=== PATIENT | female | born 1995 | race Caucasian/White ===

== ENCOUNTER 2016-12-09 19:55 | Inpatient (IN) | payer BC ==
[~2016-12-09] VITALS: Ht 170.2 cm; Wt 104.0 kg
[~2016-12-09 19:55] MED LIST: NONE PER PT
[2016-12-09] MEDS ORDERED: D5%-LACTATED RINGERS 1,000 ML IV SCH (20:49)
[2016-12-09] MEDS ORDERED: OXYTOCIN 30U/ 0.9% NaCL 500ML 500 ML IV ONE (20:49)
[2016-12-09] MEDS ORDERED: ONDANSETRON 2MG/ML, 2ML IVPush PRN (21:00)
[2016-12-09] MEDS ORDERED: CALCIUM CARBONATE 500 MG TAB.CHEW PO PRN (21:00)
[2016-12-09] MEDS: LACTATED RINGERS 1,000 ML IV SCH (21:00)
[2016-12-09] MEDS ORDERED: FENTANYL PF 100 MCG/2ML IV PRN (21:00)
[2016-12-09] MEDS ORDERED: CLINDAMYCIN PMX 900MG/50ML 50 ML IVPB SCH (21:00)
[2016-12-09] MEDS ORDERED: FENTANYL PF 100 MCG/2ML IVPush PRN (21:00)
[2016-12-09 21:19] VITALS: BP 164/103
[2016-12-09] MEDS ORDERED: PLEASE ENTER HEIGHT AND WEIGHT MC SCH (21:30)
[2016-12-09] MEDS ORDERED: CLINDAMYCIN PMX 900MG/50ML 50 ML ONE (21:34)
[2016-12-09] MEDS ORDERED: NEWBORN KIT ONE (21:34)
[2016-12-09] MEDS ORDERED: OXYTOCIN 30U/ 0.9% NaCL 500ML 500 ML ONE (21:34)
[2016-12-09 22:04] LABS: BLOOD UREA NITROGEN 6 mg/dL (7-18)
[2016-12-09 22:10] LABS: ASPARTATE AMINO TRANSFERASE 16 U/L (15-37)
[2016-12-10] MEDS ORDERED: FENTANYL PF 100 MCG/2ML ONE ×2 (02:15→03:13)
[2016-12-10] MEDS ORDERED: ONDANSETRON 2MG/ML, 2ML ONE (02:20)
[2016-12-10] MEDS ORDERED: FENTANYL/BUPIV./NS/PF 250 ML EPIDCONT ONE ×2 (03:13→03:16)
[2016-12-10] MEDS ORDERED: BUPIVACAINE 0.25% ONE ×2 (03:14→03:16)
[2016-12-10] MEDS ORDERED: LIDOCAINE/PF 1.5%-EPI 1:200K, 30ML ONE (03:16)
[2016-12-10] MEDS: LACTATED RINGERS 1,000 ML IV SCH (04:00)
[2016-12-10] MEDS: OXYTOCIN 30U/ 0.9% NaCL 500ML 500 ML IV SCH ×2 (05:34→15:34)
[2016-12-10] MEDS ORDERED: ONDANSETRON 2MG/ML, 2ML IV PRN (06:00)
[2016-12-10] MEDS ORDERED: MISOPROSTOL 200 MCG TABLET PR PRN (06:00)
[2016-12-10 08:30] VITALS: BP 123/75
[2016-12-10 12:30] VITALS: BP 125/80
[2016-12-10] MEDS: IBUPROFEN 600 MG TABLET PO PRN ×2 (16:44→22:48)
[2016-12-10] MEDS: PRENATAL VIT/IRON/FA 1 EACH TABLET PO SCH (16:44)
[2016-12-10] MEDS: HYDROcodone/APAP 5/325 TABLET PO PRN (21:28)
[2016-12-10 22:15] VITALS: BP 140/84
[2016-12-10] MEDS ORDERED: MEASLES,MUMPS&RUBELLA VACC/PF 0.5 ML SQ-VACC ONE (22:30)
[2016-12-11] MEDS ORDERED: DIPH,PERTUSS(ACELL),TET VAC/PF NC IM-VACC ONE ×2 (00:48→01:30)
[2016-12-11] MEDS: HYDROcodone/APAP 5/325 TABLET PO PRN ×5 (01:57→21:56)
[2016-12-11 02:00] VITALS: BP 133/69
[2016-12-11] MEDS: IBUPROFEN 600 MG TABLET PO PRN ×3 (05:30→21:56)
[2016-12-11 08:00] VITALS: BP 121/74
[2016-12-11] MEDS: DOCUSATE 100 MG CAPSULE PO PRN ×2 (09:36→21:56)
[2016-12-11] MEDS: PRENATAL VIT/IRON/FA 1 EACH TABLET PO SCH (09:36)
[2016-12-11 12:20] VITALS: BP 137/88
[2016-12-11 19:25] VITALS: BP 141/88
[2016-12-12] MEDS: HYDROcodone/APAP 5/325 TABLET PO PRN ×2 (03:12→14:04)
[2016-12-12] MEDS: IBUPROFEN 600 MG TABLET PO PRN (03:12)
[2016-12-12 06:59] VITALS: BP 138/81
[2016-12-12] MEDS ORDERED: HYDR-3240 PO (13:01)
[2016-12-12] MEDS ORDERED: DOCU-30 PO (13:01)
[2016-12-12] MEDS: PRENATAL VIT/IRON/FA 1 EACH TABLET PO SCH (14:04)
[2016-12-12] MEDS: DOCUSATE 100 MG CAPSULE PO PRN (14:04)
== END 2016-12-12 15:57 | disposition home or self-care (01) | DRG 775 ==
LOC: LDOP 19:55 → LDIP 20:26 → 2NW 12-10 08:11
PROVIDERS: ADMIT Student in an Organized Health Care Education/Training Program; ATTEND Student in an Organized Health Care Education/Training Program
PROC: 10E0XZZ Delivery of Products of Conception, External Approach (ICD-10-PCS; principal; 2016-12-10)
PROC: 10907ZC Drainage of Amniotic Fluid, Therapeutic from Products of Conception, Via Natural or Artificial Opening (ICD-10-PCS; 2016-12-10)
PROC: 00HU33Z Insertion of Infusion Device into Spinal Canal, Percutaneous Approach (ICD-10-PCS; 2016-12-10)
PROC: 3E0R3CZ (ICD-10-PCS; 2016-12-10)
DX: O14.04 Mild to moderate pre-eclampsia, complicating childbirth (principal); O99.824 Streptococcus B carrier state complicating childbirth; O99.52 Diseases of the respiratory system complicating childbirth; O32.6XX0 Maternal care for compound presentation, not applicable or unspecified; J31.0 Chronic rhinitis; O71.82 Other specified trauma to perineum and vulva; Z3A.39 39 weeks gestation of pregnancy; Z37.0 Single live birth; Z88.0 Allergy status to penicillin; Z87.59 Personal history of other complications of pregnancy, childbirth and the puerperium; Z23 Encounter for immunization
CPT/HCPCS: 36415; 80053; 81003; 82570; 84156; 84550; 85025; 86850; 86900; 90715; J2405; J3010; J3490; J2590; J7120